=== PATIENT | male | born 1995 | race Caucasian/White ===

== ENCOUNTER → 2021-01-09 11:08 | Outpatient (CLI) | payer OTHER, SELFPAY ==
--- NOTE | 2021-01-09 11:17 | XR_ITS ---
PROCEDURE: XR ANKLE WT BEARING LT MIN 3V CLINICAL INDICATION: ankle injury COMPARISON: No exams were available for comparison FINDINGS: There is a transverse fracture involving the base of the medial malleolar region with minimal distraction of the fracture fragments by approximately 4 mm. The ankle mortise does not appear widened. There is overlying soft tissue swelling medially. The medial malleolar fracture appears to extend into the anterior aspect of the distal tibia. A posterior and lateral splint is in place. The joint spaces are well-preserved. No significant degenerative/arthritic changes. No erosive changes evident. Other findings:None. IMPRESSION: Minimally distracted fracture of the medial malleolus extending into the anterior distal tibia without significant displacement Dictated by: Florentino Dominguez MD 01/09/2021 11:32 Florentino Dominguez MD in [facility] 01/09/2021 11:32
== END ==
PROVIDERS: PCP Family Medicine; Visit Provider Podiatrist
DX: S99.919A Unspecified injury of unspecified ankle, initial encounter (principal)
CPT/HCPCS: 73610

== ENCOUNTER → 2021-01-22 06:19 | Outpatient (CLI) | payer OTHER, SELFPAY ==
--- NOTE | 2021-01-22 06:30 | CT_ITS ---
PROCEDURE: CT ANKLE LT WO CON CLINICAL HISTORY: Evaluate fracture of left ankle COMPARISON: CR XR ANKLE WT BEARING LT MIN 3V from 01/09/2021 TECHNIQUE: Axial images obtained with sagittal and coronal reformats. All CT scans at the facility use one or more dose reduction, viz: automated exposure control, ma/kV adjustment per patient size (including targeted exams where dose is matched to indication, i.e. head), or iterative reconstruction technique. FINDINGS: Transverse fracture of the medial malleolus again noted with fracture extending to the medial aspect of the tibiotalar joint. There is a small avulsion fracture of the lateral aspect of the distal tibia with mild lateral distraction. Ankle joint mortise appears to be intact. There are no other fractures. No dislocation. There is mild soft tissue swelling about the ankle joint. No other abnormality. IMPRESSION: Transverse mildly displaced and distracted fracture of the medial malleolus with some overlying soft tissue swelling with fracture extending to the medial aspect of the tibiotalar joint. Mildly comminuted avulsion fracture of the lateral aspect of the distal tibia with mild lateral distraction and some overlying soft tissue swelling. Dictated by: Rico Huerta MD 01/22/2021 08:37 Rico Huerta MD in [facility] 01/22/2021 08:37
== END ==
PROVIDERS: PCP Family Medicine; Visit Provider Podiatrist
DX: S82.52XA Displaced fracture of medial malleolus of left tibia, initial encounter for closed fracture (principal); M25.472 Effusion, left ankle; S99.919A Unspecified injury of unspecified ankle, initial encounter
CPT/HCPCS: 73700

== ENCOUNTER → 2021-02-03 12:18 | Outpatient (CLI) | payer OTHER, SELFPAY ==
--- NOTE | 2021-02-03 12:23 | XR_ITS ---
PROCEDURE: XR ANKLE WT BEARING LT MIN 3V CLINICAL INDICATION: fracture follow up COMPARISON: CR XR ANKLE WT BEARING LT MIN 3V from 01/09/2021 FINDINGS: Bones: Minimally transverse fracture once again noted at the base the medial malleolus. There is mild distraction of the fracture fragment which may be somewhat less prominent compared to the previous exam. There is 3 mm anterior displacement of the distal fracture fragment unchanged. There is some minimal callus formation developing medially. Joints: The ankle mortise does not appear widened. Other findings:None. IMPRESSION: Healing medial malleolar fracture as described above. Dictated by: Florentino Dominguez MD 02/03/2021 13:08 Florentino Dominguez MD in [facility] 02/03/2021 13:08
== END ==
PROVIDERS: PCP Family Medicine; Visit Provider Nurse Practitioner
DX: T14.8XXA Other injury of unspecified body region, initial encounter (principal)
CPT/HCPCS: 73610